=== PATIENT | female | born 1975 | race Caucasian/White ===

== ENCOUNTER 2017-03-11 22:31 | Emergency (ER) | payer MEDICARE, MEDICAID ==
[~2017-03-11] VITALS: Ht 170.2 cm; Wt 72.6 kg
[2017-03-11 22:47] VITALS: BP 134/80
== END 2017-03-12 07:40 | disposition left against medical advice (07) ==
LOC: EDBD 22:31 → ER 22:31 → EDUNIT# 22:31 → ER 03-12 07:40
DX: F41.9 Anxiety disorder, unspecified (principal); Z53.21 Procedure and treatment not carried out due to patient leaving prior to being seen by health care provider